=== PATIENT | female | born 1970 ===

== ENCOUNTER 2018-06-11 07:43 | Outpatient (CLI) | payer OTHER | END 2018-06-11 07:50 | disposition home or self-care (01) | LOC: MAMO-SONO 07:43 | DX: N60.11 Diffuse cystic mastopathy of right breast (principal); N60.12 Diffuse cystic mastopathy of left breast; Z12.31 Encounter for screening mammogram for malignant neoplasm of breast; E03.8 Other specified hypothyroidism ==

== ENCOUNTER 2020-08-09 07:40 | Outpatient (CLI) | payer OTHER | END 2020-08-09 07:59 | disposition home or self-care (01) | LOC: MAMO-SONO 07:40 | PROVIDERS: ATTEND Obstetrics & Gynecology | DX: N60.11 Diffuse cystic mastopathy of right breast (principal) ==

== ENCOUNTER 2020-08-24 08:28 | Outpatient (CLI) | payer OTHER | END 2020-08-24 08:54 | disposition home or self-care (01) | LOC: SONOGRAMA 08:28 → MAMO-SONO 08:28 | PROVIDERS: ATTEND Obstetrics & Gynecology | DX: N60.11 Diffuse cystic mastopathy of right breast (principal) ==